=== PATIENT | female | born 1980 | race Hispanic/Latino ===

== ENCOUNTER 2023-11-25 15:43 | Emergency (ER) | payer OTHER, SELFPAY ==
[2023-11-25 15:48] VITALS: BP 127/70; PULSE 88; RESP 16; TEMP 36.6; O2SAT 98
--- NOTE | 2023-11-25 15:52 | ED.HA ---
HPI - Headache General Chief Complaint: Headache Stated Complaint: headache Time Seen by Provider: 11/25/23 15:50 Source: patient Mode of arrival: ambulatory Limitations: no limitations and language barrier History of Present Illness HPI Narrative: Patient is a 44 y/o female who presents to the ED with c/o CODY. Patient is primarily [place] speaking. [employer] prep person was utilized for assistance with translation. She reports she has a long history of HAs/migraines, states this current episode began on Friday. Has been taking ibuprofen for pain w/o improvement. Has not taken anything for pain today. Denies fever, dizziness, N/V, vision changes. Related Data Allergies Allergy/AdvReac Type Severity Reaction Status Date / Time No Known Allergies Allergy Verified 11/25/23 16:37 Review of Systems Review of Systems: All systems reviewed & are unremarkable except as noted in HPI. All systems reviewed & are unremarkable except as noted in HPI and below Exam Narrative: GENERAL: Well-appearing, well-nourished, and in no acute distress. HEAD: Normocephalic, atraumatic. EYES: PERRL/EOMI, conjunctiva clear. CHEST: Clear to auscultation. ?No respiratory distress. HEART: Regular rate and rhythm.? NEURO: ?Alert and oriented x3. No gross focal deficits. Moves all extremities equally. Ambulatory with a steady gait. Course Vital Signs Vital signs: Vital Signs Temperature 97.8 F 11/25/23 15:48 Pulse Rate 88 11/25/23 15:48 Respiratory Rate 16 11/25/23 15:48 Blood Pressure 127/70 11/25/23 15:48 Pulse Oximetry 98 11/25/23 15:48 Oxygen Delivery Room Air 11/25/23 15:48 Temperature 97.8 F 11/25/23 15:48 Pulse Rate 88 11/25/23 15:48 Respiratory Rate 16 11/25/23 15:48 Blood Pressure 127/70 11/25/23 15:48 Pulse Oximetry 98 11/25/23 15:48 Oxygen Delivery Room Air 11/25/23 15:48 MDM - Headache MDM Narrative Medical decision making narrative: Patient's headache was not sudden in onset or maximal in severity. There are no focal neurological deficits on exam. Subarachnoid hemorrhage is felt to be unlikely at this time. There is no history of fever and neck is supple on evaluation without meningeal signs. Meningitis is felt to be unlikely. No traumatic history or signs of trauma on evaluation. No vision changes or ocular signs of acute glaucoma. Patient feeling much better after migraine cocktail. Patient's headache is felt to be benign cephalgia and reasonable for further outpatient management. Advised patient to follow with PCP for further evaluation. Given reasons to return. Discharged in stable condition. Medical Records Attestation: I reviewed the patient's medical records. Discharge Plan Discharge Clinical Impression: Migraine Qualifiers: Migraine type: unspecified Status migrainosus presence: without status migrainosus Intractability: not intractable Qualified Code(s): G43.909 - Migraine, unspecified, not intractable, without status migrainosus Patient Disposition: Home, Self-Care Condition: Stable Instructions: Antibiotic Form, Migraine Headache (ED), Acute Headache (ED) Additional Instructions: Continue Tylenol and ibuprofen for pain at home. Stay well hydrated. Recommend low light/low stimulus environment, getting plenty of rest. Follow-up with your primary care doctor for further evaluation. Return to the ED if you experience worsening or severe symptoms, unable to keep down food or drink, vision changes, severe dizziness, or any other symptoms of concern. Follow-up/Referrals: PHYSICIAN,[facility] [employer] [Primary Care Provider] - Time of Disposition: 17:31
[2023-11-25] MEDS: ACETAMINOPHEN 500 MG TABLET 1000 MG PO (16:38)
[2023-11-25] MEDS: diphenhydrAMINE HCl INJ 50 MG/ML VIAL 25 MG IV PUSH (16:38)
[2023-11-25] MEDS: KETOROLAC 30 MG/ML VIAL (*BKC) IV PUSH (16:38)
[2023-11-25] MEDS: SODIUM CHLORIDE 0.9% IV 1,000 ML 999 ML IV CONT (16:39)
[2023-11-25] MEDS: METOCLOPRAMIDE HCL INJ 10 MG/2 ML VIAL IV PUSH (16:39)
--- NOTE | 2023-11-25 16:44 | PC.NURSE ---
Pt refusing Tyl.
--- NOTE | 2023-11-25 17:05 | PC.NURSE ---
Pt eating [place] meal. RN instructed pt to remain NPO & no further eating. Pt voices understanding
[2023-11-25 18:02] VITALS: BP 120/72; PULSE 80; RESP 16; TEMP 36.6; O2SAT 99
== END 2023-11-25 18:04 | disposition home or self-care (01) ==
LOC: ANHED 17:47
PROVIDERS: Emergency Provider Physician Assistant
DX: G43.909 Migraine, unspecified, not intractable, without status migrainosus (principal)
CPT/HCPCS: 96361; 96374; 96375; 99284; A9270; J1200; J1885; J2765; J7030